=== PATIENT | male | born 1945 | race Caucasian/White ===

== ENCOUNTER → 2017-06-20 | Outpatient (CLI) | payer BC ==
[~2017-06-20] MED LIST: ATOR-22 PO; CALC500C3 PO; CARB25TA12 PO; CEVI1CAP PO; CLON1TAB3 PO; LIDO2SOL19 PO; LINA1CAP PO; MELA3CAP PO; OMEP20CA9 PO; PHEN-778 PO; SIME80CH PO; WLLXL300 PO; ZLF/100 PO
--- NOTE | 2017-06-20 20:38 | DIAGNOSTIC IMAGING REPORT ---
THORACIC SPINE 3 VIEWS ROUTINE HISTORY: 72 years-old Male UPPER BACK PAIN AFTER FALL acute upper back pain status post fall COMPARISON: CTA of the chest 12/28/2012 TECHNIQUE: 3 views of the thoracic spine FINDINGS: Dextroscoliosis of the upper thoracic spine redemonstrated mild multilevel endplate spurring without significant intervertebral disc space narrowing identified. There are 12 rib-bearing thoracic-type vertebral segments present. No acute fracture or subluxation identified. No compression deformity. There are battery pack devices over the bilateral chest wall with leads extending superiorly along the neck. The heart appears mildly enlarged. Atherosclerosis of the aorta. IMPRESSION: No acute fracture or subluxation. The above report was generated using voice recognition software. It may contain grammatical, syntax or spelling errors. Electronically signed by: Kali Lucia M.D. 06/20/2017 8:36 PM Dictated Date/Time: 06/20/2017 8:33 PM
== END | disposition home or self-care (01) ==
LOC: C.RAD 19:59
PROVIDERS: ATTEND Family Medicine
DX: M54.9 Dorsalgia, unspecified (principal)